=== PATIENT | male | born 1960 | race Caucasian/White ===

== ENCOUNTER → 2017-08-16 | Outpatient (REF) | payer OTHER ==
--- NOTE | 2017-08-16 11:10 | REP ---
Deep vein duplex ultrasound of the left lower extremity: The deep veins demonstrate normal compression, normal Doppler color flow and normal Doppler waveforms with respiration and augmentation from the popliteal vein to the common femoral vein. There is thrombus in the distal superficial saphenous vein at the level of the knee. Impression: There is no deep vein thrombus. There is thrombus in the superficial saphenous vein at the level of the knee. Signed by Nicko Cotton MD 08/16/2017 11:02 A
== END ==
LOC: M RAD 09:59
PROVIDERS: ATTEND Family Medicine
DX: I82.812 Embolism and thrombosis of superficial veins of left lower extremity (principal)

== ENCOUNTER → 2018-02-17 | Outpatient (REF) | payer OTHER | LOC: M SFHCLERA 18:44 | DX: J02.9 Acute pharyngitis, unspecified (principal) ==

== ENCOUNTER → 2018-07-22 | Outpatient (REF) | payer OTHER | LOC: M SFHCLERA 12:21 | DX: J02.9 Acute pharyngitis, unspecified (principal) ==

== ENCOUNTER → 2019-10-05 | Outpatient (REF) | payer OTHER | LOC: M SFHCLERA 11:32 | PROVIDERS: ATTEND Physician Assistant | DX: J02.9 Acute pharyngitis, unspecified (principal) ==

== ENCOUNTER → 2021-11-03 | Outpatient (CLI) | payer OTHER | LOC: M RAD 11:01 | PROVIDERS: ATTEND Family Medicine | DX: I87.2 Venous insufficiency (chronic) (peripheral) (principal) ==

== ENCOUNTER → 2021-11-21 | Outpatient (POV) | payer OTHER ==
[~2021-11-21] VITALS: Ht 185.4 cm; Wt 114.0 kg
[2021-11-21 13:00] VITALS: BP 135/81
== END ==
LOC: M IRPOV 12:53
PROVIDERS: ATTEND Radiology Diagnostic Radiology
DX: I82.812 Embolism and thrombosis of superficial veins of left lower extremity (principal); I83.813 Varicose veins of bilateral lower extremities with pain; R60.0 Localized edema

== ENCOUNTER → 2021-12-04 | Outpatient (CLI) | payer OTHER | LOC: M RAD 12:17 | PROVIDERS: ATTEND Radiology Diagnostic Radiology | DX: I83.813 Varicose veins of bilateral lower extremities with pain (principal) ==

== ENCOUNTER → 2021-12-14 | Outpatient (CLI) | payer OTHER ==
[~2021-12-14] MED LIST: EQL50TAB2 PO; LIDOCAINE 1% MDV 20ML VIAL As Ordered ONE; LIDOCAINE 2% MDV 20ML VIAL As Ordered ONE; MIDAZOLAM INJ 2MG/2ML VIAL (J2250 PER 1MG) As Ordered ONE; MULT-90 PO; NS 1,000 ML IV SCH; VITAD400CA FT; diphenhydrAMINE 50MG/ML VIAL (J1200) As Ordered ONE; fentaNYL 100 MCG/2 ML INJECTION As Ordered ONE
[2021-12-14 11:35] VITALS: BP 128/79
== END ==
LOC: M IRPRO 09:17
PROVIDERS: ATTEND Radiology Diagnostic Radiology
DX: I83.812 Varicose veins of left lower extremity with pain (principal)
CPT/HCPCS: 36465; 36478; 76940; J1200; J2250; J3010

== ENCOUNTER → 2021-12-21 | Outpatient (CLI) | payer OTHER ==
[~2021-12-21] MED LIST changes: -LIDOCAINE 1% MDV 20ML VIAL As Ordered ONE; -LIDOCAINE 2% MDV 20ML VIAL As Ordered ONE; -MIDAZOLAM INJ 2MG/2ML VIAL (J2250 PER 1MG) As Ordered ONE; -NS 1,000 ML IV SCH; -diphenhydrAMINE 50MG/ML VIAL (J1200) As Ordered ONE; -fentaNYL 100 MCG/2 ML INJECTION As Ordered ONE
== END ==
LOC: M RAD 10:01
PROVIDERS: ATTEND Radiology Diagnostic Radiology
DX: R22.42 Localized swelling, mass and lump, left lower limb (principal)

== ENCOUNTER → 2022-01-02 | Outpatient (POV) | payer OTHER ==
[~2022-01-02] VITALS: Ht 188 cm; Wt 113.6 kg
[2022-01-02 08:05] VITALS: BP 150/83
== END ==
LOC: M IRPOV 07:58
PROVIDERS: ATTEND Radiology Diagnostic Radiology
DX: I83.812 Varicose veins of left lower extremity with pain (principal); I83.12 Varicose veins of left lower extremity with inflammation; Z48.812 Encounter for surgical aftercare following surgery on the circulatory system
CPT/HCPCS: 76940; G0463

== ENCOUNTER 2024-08-01 16:14 | Emergency (ER) | payer OTHER ==
[~2024-08-01] VITALS: Ht 185.4 cm; Wt 123.7 kg
[2024-08-01] MEDS ORDERED: OXYC-517 (16:50)
[2024-08-01] MEDS ORDERED: CELE0.09 (16:50)
[2024-08-01] MEDS ORDERED: SENN-193 (16:50)
[2024-08-01] MEDS ORDERED: KETO10TAB (16:50)
[2024-08-01] MEDS ORDERED: METH-1164 (16:50)
[2024-08-01] MEDS ORDERED: ASPI-226 (16:50)
[2024-08-01 17:48] VITALS: BP 124/62; TEMP 97.5; O2SAT 95
== END 2024-08-01 19:25 | disposition home or self-care (01) ==
LOC: M ED 16:14
DX: L76.82 Other postprocedural complications of skin and subcutaneous tissue (principal); M25.461 Effusion, right knee; G47.33 Obstructive sleep apnea (adult) (pediatric); Z79.899 Other long term (current) drug therapy; Z79.82 Long term (current) use of aspirin; Z88.8 Allergy status to other drugs, medicaments and biological substances